=== PATIENT | male | born 1965 | race Caucasian/White ===

== ENCOUNTER 2017-10-04 10:02 | Emergency (ER) | payer OTHER ==
[2017-10-04 10:15] VITALS: BP 165/104; PULSE 87; RESP 16; TEMP 98.8; O2SAT 92
[2017-10-04] MEDS ORDERED: LIDOCAINE 5% 1 EA PATCH TD ONE (10:24)
--- NOTE | 2017-10-04 10:27 | EDPHY ---
H & P Stated Complaint: LOWER BACK PAIN Time Seen by Provider: 10/04/17 10:11 HPI/ROS: Chief Complaint: Back pain HPI: 51-year-old male started having low back pain 5 days ago. He woke up with it. Describing as a dull aching low back pain, worse with movement. Occasional getting spasm the pain. He has been trying arrested take ibuprofen but is not improving. 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 He did take some Vicodin yesterday with minimal relief. No numbness or weakness. He is ambulating with some discomfort. No difficulty urinating. Last bowel movement was yesterday and was normal. No fevers or chills. No history of IV drug abuse. No recent falls or trauma. Pain is about a 7/10. ROS: 10 point Review of Systems is negative except as noted in the HPI. PMH: Hyperlipidemia Social History: No smoking, occasional alcohol, no recreational drug use Family History: non-contributory Physical Exam: Gen: Awake, Alert, No Distress HEENT: Nose: no rhinorrhea Eyes: PERRLA, EOMI Mouth: Moist mucosa Neck: Supple, no JVD Chest: nontender, lungs clear to auscultation Heart: S1, S2 normal, no murmur Abd: Soft, non-tender, no guarding Back: no CVA tenderness, no midline tenderness palpable muscle spasm the bilateral lumbar paraspinal muscles Ext: no edema, non-tender Skin: no rash Neuro: CN II-XII intact, Sensation grossly intact, Strength 5/5 in bilateral upper and lower extremities, he has 2+ deep tendon reflexes. Normal dorsiflexion and plantar flexion. Toes are downgoing. Sensations intact. - Personal History Current Tetanus Diphtheria and Acellular Pertussis (TDAP): Yes Tetanus Vaccine Date: LESS THAN 10 YEARS - Medical/Surgical History Hx Asthma: No Hx Chronic Respiratory Disease: No Hx Diabetes: No Hx Cardiac Disease: No Hx Renal Disease: No Hx Cirrhosis: No Hx Alcoholism: No Hx HIV/AIDS: No Hx Splenectomy or Spleen Trauma: No Other PMH: HIGH CHOLESTERAL, APPY, EXPLORATORY LAP, MINISCUS SX, LYPOMA REMOVAL BACK - Social History Smoking Status: Never smoked Constitutional: Initial Vital Signs Temperature (C) 37.1 C 10/04/17 10:12 Heart Rate 87 10/04/17 10:12 Respiratory Rate 16 10/04/17 10:12 Blood Pressure 165/104 H 10/04/17 10:12 O2 Sat (%) 92 10/04/17 10:12 O2 Delivery Mode Room Air Allergies/Adverse Reactions: Penicillins Allergy (Verified 10/04/17 10:11) phenobarbital Allergy (Verified 10/04/17 10:11) tetracycline Allergy (Verified 10/04/17 10:11) Home Medications: Medication Instructions Recorded Atorvastatin Calcium 10/04/17 Medical Decision Making ED Course/Re-evaluation: 51-year-old male with low back pain. No red flags for acute neurosurgical emergency or infection. He has been taking ibuprofen. Will add Lidoderm. He has also been resting. I have given him instructions for back exercises. He will follow up with primary care physician in 4-5 days for recheck. Departure - Departure Disposition: Home, Routine, Self-Care Clinical Impression: Back pain Condition: Good Instructions: Low Back Strain (ED) Additional Instructions: Take ibuprofen, 600 mg, 3 times a day. You may also take acetaminophen, 1000 mg every 6 hours. You may replace the Lidoderm patch every 24 hr. These are available over-the- counter. Make sure to remain active. Did do not lay in bed or sit in a chair for long periods. It is important to remain active and keep your back moving in order to improve. Please see the attached back exercise instructions. Your back pain will improve a little bit each day and you should expect to feel better within the next 2 weeks. Follow up with your primary care physician in 4-5 days for recheck. Return to the emergency department for uncontrolled pain, numbness or weakness, difficulty urinating or having a bowel movement, fevers or chills, or any other concerns. Referrals: Jimy Pressley DO [Primary Care Provider] - As per Instructions
[2017-10-04] MEDS ORDERED: LIDOCAINE 5% 1 EA PATCH TD SCH (10:30)
[2017-10-04] MEDS ORDERED: PATCH REMOVAL 1 EA PATCH TD SCH (21:00)
== END 2017-10-04 10:33 | disposition home or self-care (01) ==
LOC: CED 10:02
DX: M54.5 Low back pain (principal)